=== PATIENT | female | born 2000 | race Caucasian/White ===

== ENCOUNTER 2025-02-24 13:06 | Emergency (ER) | payer OTHER ==
[~2025-02-24] VITALS: Ht 180.3 cm; Wt 174.6 kg
[2025-02-24] MEDS ORDERED: Ondansetron 4 MG SoluTab SL ONE (13:30)
[2025-02-24] MEDS ORDERED: ONDA4ODT MM (14:06)
== END 2025-02-24 14:23 | disposition home or self-care (01) ==
LOC: ER 13:06
DX: S06.0X0A Concussion without loss of consciousness, initial encounter (principal); W51.XXXA Accidental striking against or bumped into by another person, initial encounter; Z88.0 Allergy status to penicillin; Z88.8 Allergy status to other drugs, medicaments and biological substances
CPT/HCPCS: 99283; A9270

== ENCOUNTER 2025-03-20 09:47 | Emergency (ER) | payer OTHER ==
[~2025-03-20] VITALS: Ht 180.3 cm; Wt 177.8 kg
[~2025-03-20 09:47] MED LIST: ONDA4ODT MM
[2025-03-20 12:31] LABS: Source, Urine Clean Catch
[2025-03-20 12:50] LABS: Bilirubin, Urine Neg (Neg); Color, Urine Yellow (P-Yellow); Glucose Qualitative, Urine Neg (Neg); Ketones, Urine Neg (Neg); Leukocyte Esterase, Urine Neg (Neg); Protein, Urine 1+ (Neg); Specific Gravity, Urine 1.020 (1.003-1.022); Urobilinogen, Urine NORM (Normal)
[2025-03-20] MEDS ORDERED: CEPH500 PO (13:15)
[2025-03-20] MEDS ORDERED: PHENA200 PO (13:15)
== END 2025-03-20 13:35 | disposition home or self-care (01) ==
LOC: ER 09:47
PROVIDERS: Emergency Medicine
DX: R30.0 Dysuria (principal); J45.909 Unspecified asthma, uncomplicated; Z88.0 Allergy status to penicillin; Z88.8 Allergy status to other drugs, medicaments and biological substances
CPT/HCPCS: 81025; 99283

== ENCOUNTER 2025-04-29 12:40 | Emergency (ER) | payer OTHER ==
[~2025-04-29] VITALS: Ht 180.3 cm; Wt 174.6 kg
[~2025-04-29 12:40] MED LIST changes: +CEPH500 PO; +PHENA200 PO
[2025-04-29] MEDS ORDERED: NS 1,000 ML IV SCH (13:00)
[2025-04-29] MEDS ORDERED: Ondansetron HCl 2 MG / ML 2ML Vial IV ONE (13:00)
[2025-04-29 14:02] LABS: Source, Urine Clean Catch
[2025-04-29 14:27] LABS: Bilirubin, Urine Neg (Neg); Color, Urine Yellow (P-Yellow); Glucose Qualitative, Urine Neg (Neg); Ketones, Urine Neg (Neg); Leukocyte Esterase, Urine Neg (Neg); Protein, Urine Neg (Neg); Specific Gravity, Urine 1.010 (1.003-1.022); Urobilinogen, Urine NORM (Normal)
[2025-04-29 14:46] LABS: BASOPHILS ABSOLUTE AUTO 0.03 K/mm3 (0.00-0.23); BASOPHILS PERCENT AUTO 1 % (0-2); EOSINOPHILS ABSOLUTE AUTO 0.14 K/mm3 (0.00-0.68); EOSINOPHILS PERCENT AUTO 2 % (0-6); Hematocrit 41.1 % (33.0-51.0); Hemoglobin 13.1 g/dL (11.5-16.0); IMMATURE GRAN ABSOLUTE AUTO 0.01 K/mm3 (0.00-0.10); IMMATURE GRAN PERCENT AUTO 0 % (0-1); LYMPHOCYTES ABSOLUTE AUTO 2.14 K/mm3 (0.84-5.20); LYMPHOCYTES PERCENT AUTO 35 % (21-46); MONOCYTES ABSOLUTE AUTO 0.43 K/mm3 (0.16-1.47); MONOCYTES PERCENT AUTO 7 % (4-13); Mean Corpuscular HGB Conc 31.9 g/dL (31.5-36.5); Mean Corpuscular Volume 87 fL (80-100); NEUTROPHILS ABSOLUTE AUTO 3.32 K/mm3 (1.96-9.15); NEUTROPHILS PERCENT AUTO 55 % (41-73); NRBC ABSOLUTE 0.00 K/mm3 (0.00-0.02); NRBC Auto 0.0 /100 WBC (0.0-0.2); Platelet Count 215 K/mm3 (150-400); RDW Coefficient Variation 13.7 % (11.7-14.2); RDW Standard Deviation 44.2 fL (35.1-46.3)
[2025-04-29 15:10] LABS: Beta HCG, Quantitative, Serum 19 mIU/mL (0-3)
[2025-04-29 15:20] LABS: Alanine Aminotransfer (ALT/SGP 41.0 U/L (12-78); Albumin, Blood 3.7 g/dL (3.4-5.0); Albumin/Globulin Ratio 1.1 (0.8-1.8); Anion Gap 4.0 mmol/L (3-11); Aspartate Aminotrans (AST/SGOT 22.0 U/L (12-37); Bilirubin, Total 0.4 mg/dL (0.1-1.0); Blood Urea Nitrogen 14.0 mg/dL (8-24); CO2, Blood 27.0 mmol/L (21-32); Calcium, Blood 9.6 mg/dL (8.5-10.1); Chloride, Blood 109.0 mmol/L (98-108); Creatinine, Blood 0.61 mg/dL (0.40-1.00); Globulin, Blood 3.3 g/dL (2.2-4.0); Glucose, Blood 96.0 mg/dL (70-99); Potassium, Blood 4.0 mmol/L (3.5-5.5); Sodium, Blood 136.0 mmol/L (136-145); Total Protein, Blood 7.0 g/dL (6.4-8.2)
[2025-04-29] MEDS ORDERED: Ondansetron 4 MG SoluTab SL ONE (15:35)
[2025-04-29] MEDS ORDERED: Vitamin B-625 MG PO (16:08)
[2025-04-29] MEDS ORDERED: ONDA4ODT MM (16:08)
[2025-05-05] MEDS ORDERED: ONDA4ODT MM (12:17)
== END 2025-04-29 16:03 | disposition home or self-care (01) ==
LOC: ER 12:40
PROVIDERS: Student in an Organized Health Care Education/Training Program
DX: O26.891 Other specified pregnancy related conditions, first trimester (principal); R11.0 Nausea; Z3A.00 Weeks of gestation of pregnancy not specified; O36.80X0 Pregnancy with inconclusive fetal viability, not applicable or unspecified; O99.511 Diseases of the respiratory system complicating pregnancy, first trimester; J45.909 Unspecified asthma, uncomplicated; R03.0 Elevated blood-pressure reading, without diagnosis of hypertension
CPT/HCPCS: 76801; 76817; 80053; 81003; 83690; 84702; 85025; 99284-25; A9270

== ENCOUNTER → 2025-04-30 | Outpatient (CLI) | payer OTHER ==
[~2025-04-30] MED LIST changes: +Vitamin B-625 MG PO
== END ==
LOC: LAB 15:44 → LAB SHORT 15:44
DX: N91.2 Amenorrhea, unspecified (principal)
CPT/HCPCS: 84702

== ENCOUNTER → 2025-05-03 | Outpatient (CLI) | payer OTHER | LOC: LAB 10:11 | DX: R11.2 Nausea with vomiting, unspecified (principal) ==

== ENCOUNTER 2025-05-05 09:05 | Emergency (ER) | payer OTHER | END 2025-05-05 12:37 | disposition home or self-care (01) | LOC: ER 09:05 | DX: O99.891 Other specified diseases and conditions complicating pregnancy (principal); R11.0 Nausea; R10.9 Unspecified abdominal pain; Z3A.01 Less than 8 weeks gestation of pregnancy; Z88.0 Allergy status to penicillin; Z88.8 Allergy status to other drugs, medicaments and biological substances; Z79.899 Other long term (current) drug therapy ==

== ENCOUNTER 2025-05-08 14:22 | Emergency (ER) | payer OTHER ==
[~2025-05-08] VITALS: Ht 177.8 cm; Wt 175.1 kg
[2025-05-08 16:13] LABS: BASOPHILS ABSOLUTE AUTO 0.03 K/mm3 (0.00-0.23); BASOPHILS PERCENT AUTO 0 % (0-2); EOSINOPHILS ABSOLUTE AUTO 0.11 K/mm3 (0.00-0.68); EOSINOPHILS PERCENT AUTO 1 % (0-6); Hematocrit 40.6 % (33.0-51.0); Hemoglobin 13.0 g/dL (11.5-16.0); IMMATURE GRAN ABSOLUTE AUTO 0.02 K/mm3 (0.00-0.10); IMMATURE GRAN PERCENT AUTO 0 % (0-1); LYMPHOCYTES ABSOLUTE AUTO 2.49 K/mm3 (0.84-5.20); LYMPHOCYTES PERCENT AUTO 31 % (21-46); MONOCYTES ABSOLUTE AUTO 0.42 K/mm3 (0.16-1.47); MONOCYTES PERCENT AUTO 5 % (4-13); Mean Corpuscular HGB Conc 32.0 g/dL (31.5-36.5); Mean Corpuscular Volume 88 fL (80-100); NEUTROPHILS ABSOLUTE AUTO 5.02 K/mm3 (1.96-9.15); NEUTROPHILS PERCENT AUTO 62 % (41-73); NRBC ABSOLUTE 0.00 K/mm3 (0.00-0.02); NRBC Auto 0.0 /100 WBC (0.0-0.2); Platelet Count 251 K/mm3 (150-400); RDW Coefficient Variation 14.0 % (11.7-14.2); RDW Standard Deviation 45.1 fL (35.1-46.3)
[2025-05-08 16:21] LABS: Source, Urine Clean Catch
[2025-05-08 16:41] LABS: Bilirubin, Urine Neg (Neg); Color, Urine Yellow (P-Yellow); Glucose Qualitative, Urine Neg (Neg); Ketones, Urine 1+ (Neg); Leukocyte Esterase, Urine Neg (Neg); Protein, Urine Neg (Neg); Specific Gravity, Urine 1.020 (1.003-1.022); Urobilinogen, Urine NORM (Normal)
[2025-05-08 16:55] LABS: Alanine Aminotransfer (ALT/SGP 41.0 U/L (12-78); Albumin, Blood 3.8 g/dL (3.4-5.0); Albumin/Globulin Ratio 1.2 (0.8-1.8); Anion Gap 7.0 mmol/L (3-11); Aspartate Aminotrans (AST/SGOT 23.0 U/L (12-37); Beta HCG, Quantitative, Serum 675.0 mIU/mL (0-3); Bilirubin, Total 0.3 mg/dL (0.1-1.0); Blood Urea Nitrogen 16.0 mg/dL (8-24); CO2, Blood 25.0 mmol/L (21-32); Calcium, Blood 9.7 mg/dL (8.5-10.1); Chloride, Blood 108.0 mmol/L (98-108); Creatinine, Blood 0.58 mg/dL (0.40-1.00); Globulin, Blood 3.3 g/dL (2.2-4.0); Glucose, Blood 84.0 mg/dL (70-99); Potassium, Blood 4.0 mmol/L (3.5-5.5); Sodium, Blood 136.0 mmol/L (136-145); Total Protein, Blood 7.1 g/dL (6.4-8.2)
== END 2025-05-08 17:52 | disposition home or self-care (01) ==
LOC: ER 14:22
PROVIDERS: Student in an Organized Health Care Education/Training Program
DX: O20.0 Threatened abortion (principal); Z3A.01 Less than 8 weeks gestation of pregnancy; Z88.0 Allergy status to penicillin; Z88.8 Allergy status to other drugs, medicaments and biological substances; Z79.899 Other long term (current) drug therapy
CPT/HCPCS: 76801; 76817; 80053; 81003; 84702; 85025; 86850; 86900; 86901; 99284-25

== ENCOUNTER → 2025-05-10 | Outpatient (CLI) | payer OTHER ==
[~2025-05-10] MED LIST changes: +ALBU90OI INH; +PRENATAL TABLE1 EAC2 PO
[2025-05-10 11:20] LABS: Anion Gap 10.0 mmol/L (3-11); Blood Urea Nitrogen 8.0 mg/dL (8-24); CO2, Blood 23.0 mmol/L (21-32); Calcium, Blood 9.4 mg/dL (8.5-10.1); Chloride, Blood 108.0 mmol/L (98-108); Creatinine, Blood 0.58 mg/dL (0.40-1.00); Glucose, Blood 96.0 mg/dL (70-99); Potassium, Blood 3.9 mmol/L (3.5-5.5); Sodium, Blood 137.0 mmol/L (136-145)
== END ==
LOC: LAB 10:26 → LAB SHORT 10:26
PROVIDERS: Physician Assistant
DX: Z34.91 Encounter for supervision of normal pregnancy, unspecified, first trimester (principal); R11.0 Nausea
CPT/HCPCS: 80048; 84702

== ENCOUNTER → 2025-05-12 | Outpatient (CLI) | payer OTHER | LOC: LAB 10:58 → LAB SHORT 10:58 | DX: Z34.91 Encounter for supervision of normal pregnancy, unspecified, first trimester (principal) | CPT/HCPCS: 84702 ==

== ENCOUNTER 2025-05-14 10:07 | Emergency (ER) | payer OTHER ==
[~2025-05-14] VITALS: Ht 180.3 cm; Wt 176.4 kg
[~2025-05-14 10:07] MED LIST changes: -ALBU90OI INH; -PRENATAL TABLE1 EAC2 PO
[2025-05-14] MEDS ORDERED: PRENATAL TABLE1 EAC2 PO (10:25)
[2025-05-14] MEDS ORDERED: ALBU90OI INH (10:25)
[2025-05-14] MEDS ORDERED: NS 1,000 ML IV SCH (11:25)
[2025-05-14 11:30] LABS: Source, Urine Clean Catch
[2025-05-14 11:39] LABS: Bilirubin, Urine Neg (Neg); Color, Urine Yellow (P-Yellow); Glucose Qualitative, Urine Neg (Neg); Ketones, Urine Neg (Neg); Leukocyte Esterase, Urine Neg (Neg); Protein, Urine 1+ (Neg); Specific Gravity, Urine 1.025 (1.003-1.022); Urobilinogen, Urine 1+ (Normal)
[2025-05-14] MEDS ORDERED: Metoclopramide HCl 5MG / ML 2ML Vial IV ONE (12:05)
== END 2025-05-14 14:11 | disposition home or self-care (01) ==
LOC: ER 10:07
PROVIDERS: Physician Assistant
DX: O21.0 Mild hyperemesis gravidarum (principal); Z3A.01 Less than 8 weeks gestation of pregnancy; J45.909 Unspecified asthma, uncomplicated; O99.511 Diseases of the respiratory system complicating pregnancy, first trimester; Z88.8 Allergy status to other drugs, medicaments and biological substances; Z88.0 Allergy status to penicillin; Z79.899 Other long term (current) drug therapy
CPT/HCPCS: 96361; 96374; 99283-25; A9270; J2765; J7030

== ENCOUNTER 2025-05-28 21:49 | Emergency (ER) | payer OTHER ==
[~2025-05-28] VITALS: Ht 180.3 cm; Wt 176.4 kg
[~2025-05-28 21:49] MED LIST changes: +ALBU90OI INH; +PRENATAL TABLE1 EAC2 PO
[2025-05-28] MEDS ORDERED: Ondansetron HCl 2 MG / ML 2ML Vial IV ONE (22:00)
[2025-05-28] MEDS ORDERED: NS 1,000 ML IV SCH (22:00)
[2025-05-28 22:32] LABS: BASOPHILS ABSOLUTE AUTO 0.03 K/mm3 (0.00-0.23); BASOPHILS PERCENT AUTO 0 % (0-2); EOSINOPHILS ABSOLUTE AUTO 0.10 K/mm3 (0.00-0.68); EOSINOPHILS PERCENT AUTO 1 % (0-6); Hematocrit 38.7 % (33.0-51.0); Hemoglobin 12.4 g/dL (11.5-16.0); IMMATURE GRAN ABSOLUTE AUTO 0.05 K/mm3 (0.00-0.10); IMMATURE GRAN PERCENT AUTO 1 % (0-1); LYMPHOCYTES ABSOLUTE AUTO 2.48 K/mm3 (0.84-5.20); LYMPHOCYTES PERCENT AUTO 26 % (21-46); MONOCYTES ABSOLUTE AUTO 0.53 K/mm3 (0.16-1.47); MONOCYTES PERCENT AUTO 6 % (4-13); Mean Corpuscular HGB Conc 32.0 g/dL (31.5-36.5); Mean Corpuscular Volume 88 fL (80-100); NEUTROPHILS ABSOLUTE AUTO 6.40 K/mm3 (1.96-9.15); NEUTROPHILS PERCENT AUTO 67 % (41-73); NRBC ABSOLUTE 0.00 K/mm3 (0.00-0.02); NRBC Auto 0.0 /100 WBC (0.0-0.2); Platelet Count 218 K/mm3 (150-400); RDW Coefficient Variation 14.0 % (11.7-14.2); RDW Standard Deviation 45.1 fL (35.1-46.3)
[2025-05-28 23:05] LABS: Magnesium, Blood 2.0 mg/dL (1.6-2.4)
[2025-05-28 23:16] LABS: Alanine Aminotransfer (ALT/SGP 51.0 U/L (12-78); Albumin, Blood 3.4 g/dL (3.4-5.0); Albumin/Globulin Ratio 0.9 (0.8-1.8); Anion Gap 9.0 mmol/L (3-11); Aspartate Aminotrans (AST/SGOT 18.0 U/L (12-37); Bilirubin, Total 0.3 mg/dL (0.1-1.0); Blood Urea Nitrogen 12.0 mg/dL (8-24); CO2, Blood 24.0 mmol/L (21-32); Calcium, Blood 9.5 mg/dL (8.5-10.1); Chloride, Blood 107.0 mmol/L (98-108); Creatinine, Blood 0.64 mg/dL (0.40-1.00); Globulin, Blood 3.6 g/dL (2.2-4.0); Glucose, Blood 85.0 mg/dL (70-99); Phosphorus, Blood 3.8 mg/dL (2.5-4.9); Potassium, Blood 3.8 mmol/L (3.5-5.5); Sodium, Blood 136.0 mmol/L (136-145); Total Protein, Blood 7.0 g/dL (6.4-8.2)
[2025-05-29] MEDS ORDERED: Ondansetron HCl 2 MG / ML 2ML Vial IV ONE (01:15)
[2025-05-29 01:52] LABS: Source, Urine Clean Catch
[2025-05-29 02:04] LABS: Bilirubin, Urine Neg (Neg); Glucose Qualitative, Urine Neg (Neg); Ketones, Urine 1+ (Neg); Leukocyte Esterase, Urine 2+ (Neg); Protein, Urine 1+ (Neg); Specific Gravity, Urine 1.030 (1.003-1.022); Urobilinogen, Urine NORM (Normal)
[2025-05-29 02:11] LABS: Color, Urine Yellow (P-Yellow)
[2025-05-29 02:12] LABS: Red Blood Cells, Urine Not Seen /hpf (0-2)
[2025-05-29] MEDS ORDERED: CEPH500 PO (02:24)
== END 2025-05-29 03:38 | disposition home or self-care (01) ==
LOC: ER 21:49
PROVIDERS: Student in an Organized Health Care Education/Training Program
DX: O23.11 Infections of bladder in pregnancy, first trimester (principal); N30.00 Acute cystitis without hematuria; Z3A.08 8 weeks gestation of pregnancy; O99.511 Diseases of the respiratory system complicating pregnancy, first trimester; J45.909 Unspecified asthma, uncomplicated; Z88.0 Allergy status to penicillin; Z88.8 Allergy status to other drugs, medicaments and biological substances; Z79.899 Other long term (current) drug therapy
CPT/HCPCS: 80053; 81001; 83735; 84100; 84484; 84702; 85025; 87086; 93005; 93010; 96361; 96374; 99284-25; A9270; J2405; J7030

== ENCOUNTER 2025-06-05 22:21 | Emergency (ER) | payer OTHER ==
[~2025-06-05] VITALS: Ht 180.3 cm; Wt 176.4 kg
[2025-06-05 23:14] LABS: Source, Urine Clean Catch
[2025-06-05] MEDS ORDERED: NS 1,000 ML IV SCH (23:15)
[2025-06-05 23:22] LABS: Bilirubin, Urine Neg (Neg); Glucose Qualitative, Urine Neg (Neg); Ketones, Urine Neg (Neg); Leukocyte Esterase, Urine 2+ (Neg); Protein, Urine 1+ (Neg); Specific Gravity, Urine 1.025 (1.003-1.022); Urobilinogen, Urine 1+ (Normal)
[2025-06-05 23:42] LABS: Color, Urine Yellow (P-Yellow)
[2025-06-05 23:44] LABS: White Blood Cells, Urine 0-2 /hpf (0-5)
== END 2025-06-06 01:11 | disposition home or self-care (01) ==
LOC: ER 22:21
PROVIDERS: Emergency Medicine
DX: O26.891 Other specified pregnancy related conditions, first trimester (principal); R51.9 Headache, unspecified; O99.281 Endocrine, nutritional and metabolic diseases complicating pregnancy, first trimester; E86.0 Dehydration; Z3A.09 9 weeks gestation of pregnancy; O99.511 Diseases of the respiratory system complicating pregnancy, first trimester; J45.909 Unspecified asthma, uncomplicated; Z88.0 Allergy status to penicillin; Z88.8 Allergy status to other drugs, medicaments and biological substances; Z79.899 Other long term (current) drug therapy
CPT/HCPCS: 81001; 99284; A9270; J7030

== ENCOUNTER 2025-06-10 16:06 | Emergency (ER) | payer OTHER ==
[~2025-06-10] VITALS: Ht 180.3 cm; Wt 174.6 kg
[2025-06-10] MEDS ORDERED: Ketorolac Tromethamine 30mg Vial IV ONE (17:05)
[2025-06-10] MEDS ORDERED: OxyCODONE 5 mg/Acetamin 325 mg TABLET PO ONE (17:05)
[2025-06-10] MEDS ORDERED: Ondansetron HCl 2 MG / ML 2ML Vial IV ONE ×2 (17:05→19:35)
[2025-06-10] MEDS ORDERED: NS 1,000 ML IV SCH (17:05)
[2025-06-10] MEDS ORDERED: RX Prepack 2 Tabs Ondansetron ODT 4MG UD ONE (21:05)
[2025-06-10] MEDS ORDERED: RX Prepack 6 Tabs Oxycodone 5mg UD ONE (21:05)
== END 2025-06-10 21:30 | disposition home or self-care (01) ==
LOC: ER 16:06
DX: O04.89 (Induced) termination of pregnancy with other complications (principal); R10.9 Unspecified abdominal pain; R11.2 Nausea with vomiting, unspecified
CPT/HCPCS: 96374; 96375; 96376; 99283-25; A9270; J1885; J2405; J7030